=== PATIENT | female | born 1935 | race Caucasian/White ===

== ENCOUNTER → 2018-08-27 | Day surgery (SDC) | payer MEDICARE, BC | LOC: MSO 08:09 | DX: H26.491 Other secondary cataract, right eye (principal); M19.90 Unspecified osteoarthritis, unspecified site; E78.00 Pure hypercholesterolemia, unspecified; I10 Essential (primary) hypertension; Z90.49 Acquired absence of other specified parts of digestive tract; Z79.82 Long term (current) use of aspirin ==

== ENCOUNTER → 2018-10-01 | Day surgery (SDC) | payer MEDICARE, BC | LOC: MSO 09:35 | DX: H26.492 Other secondary cataract, left eye (principal) ==